=== PATIENT | female | born 1965 | race Caucasian/White ===

== ENCOUNTER 2024-05-08 15:53 | Outpatient (AMB) | payer BC, SELFPAY ==
--- NOTE | 2024-05-08 15:55 | MHC.OFFWIV ---
Intake Vital Signs 05/08/24 15:58 Height 5 ft 9 in Weight 229 lb BMI 33.8 BP 140/102 H Blood Pressure Location Lt brachial Position Sitting Pulse 90 Pulse Source Pulse Oximeter Temp 98 F Temp Source Oral Pulse Oximetry (%) 96 Oxygen Delivery Method Room Air Intake Visit Reasons: [employer] congestion, cough, ears Intake Note: Patient here for congestion, cough and bilat ear pain that has been present for about 5-6 days. Patient Tobacco Use Status: Former Tobacco user Allergies acetaminophen [From Percocet] Adverse Reaction (Intermediate, Verified 05/08/24 15:59) Hives oxycodone [From Percocet] Adverse Reaction (Intermediate, Verified 05/08/24 15:59) Hives Do you need a note to return to daycare/school/sports/work: No HPI [employer] congestion, cough, ears HPI Details This note is constructed using voice recognition software. While every effort has been made to ensure accuracy, social group worker errors may have been included. The patient is a 58 year old female who presents to the clinic today with sinus congestion, cough, and ear congestion for the past 5 days. She notes that she was treated for sinus infection at the beginning of April, the symptoms got better on Augmentin, but they worsened. She denies fever but does report some chills. She has got pressure in the frontal and maxillary area bilaterally, which does worsen when she leans forward. She denies shortness of breath. She is taking Mucinex, which seems to help a little bit. She has had no sick contacts. She is a nonsmoker and does not have any history of asthma. [facility] Social History Patient Tobacco Use Status: Former Tobacco user Review of Systems Const All systems reviewed & are unremarkable except as noted in HPI and below Physical Exam Vital Signs: Last Vital Signs Temp 98 F 05/08/24 15:58 Pulse 90 05/08/24 15:58 BP 140/102 H 05/08/24 15:58 Pulse Ox 96 05/08/24 15:58 Oxygen Delivery Method Room Air 05/08/24 15:58 BMI result Body Mass Index 33.8 Const General: cooperative, healthy appearing, comfortable and no acute distress Orientation/consciousness: patient oriented x3 Limitations: no limitations HEENT Head: Yes normal to inspection Ears: hearing grossly normal bilaterally, external ears normal and TM's normal bilaterally General nose exam: Normal external nose present, Normal nares present, Abnormal mucous membranes and turbinates present erythematous and Nasal discharge present purulent Face and sinus: Yes normal facial exam and Yes sinus tenderness Mouth: Normal oral and palatal mucosa present and moist mucous membranes Throat: Yes posterior oropharynx normal, Yes tonsils normal and Yes uvula midline Eyes General: appearance normal, both eyes and all related structures Neck Neck: Yes normal visual inspection Resp Effort & Inspection: normal respiratory effort, able to speak in complete sentences, Actively coughing, no respiratory distress, not tachypneic, no tripod positioning and no use of accessory muscles Auscultation: clear to auscultation bilaterally Cardio Rate: regular rate Rhythm: regular rhythm Heart sounds: normal S1 and S2 Skin General skin exam: no rashes or lesions noted Neuro General: patient oriented x3 Extrem General: Yes normal to inspection and Yes no clubbing, cyanosis or edema Assessment & Plan Assessment & Plan (1) Sinusitis: Code(s): J32.9 - Chronic sinusitis, unspecified Qualifiers: Sinusitis location: unspecified location Chronicity: acute Recurrence: not specified as recurrent Qualified Code(s): J01.90 - Acute sinusitis, unspecified Plan: Supportive measures encouraged and reviewed. Advised consideration of sinus rinse if needed. Antibiotic sent to requested pharmacy, advised patient to take antibiotics until completed and not to stop if feeling better, unless the patient has side effects. Advised patient to follow up with primary care provider with worsening or failure to resolve. Plan See above for full details and plan. Medications: New doxycycline hyclate 100 mg PO BID 10 days 20 caps 0RF Coding Level of Care Code New Pt Level 3 (52751) Diagnoses Acute sinusitis, recurrence not specified, unspecified location J01.90 Sinusitis location: unspecified location Chronicity: acute Recurrence: not specified as recurrent
[2024-05-08 15:58] VITALS: BP 140/102; PULSE 90; TEMP 36.6; O2SAT 96; BMI 33.8
== END 2024-05-08 16:26 | disposition home or self-care (01) ==
PROVIDERS: Visit Provider Registered Nurse
DX: J01.90 Acute sinusitis, unspecified (principal)

== ENCOUNTER → 2024-05-08 15:53 | Outpatient (BNVA) | payer BC, SELFPAY | PROVIDERS: Visit Provider Registered Nurse ==